=== PATIENT | female | born 1970 | race Caucasian/White ===

== ENCOUNTER 2019-11-11 01:32 | Outpatient (CLI) | payer OTHER, SELFPAY ==
[2019-11-12 13:59] LABS: SARS-CoV-2 RNA PCR Negative
== END 2019-11-11 01:33 | disposition home or self-care (01) ==
LOC: ANHCOVIDDT 01:33
PROVIDERS: PCP Family Medicine; Visit Provider Podiatrist Foot & Ankle Surgery
DX: Z01.812 Encounter for preprocedural laboratory examination (principal); Z11.59 Encounter for screening for other viral diseases
CPT/HCPCS: 87635; C9803; U0003

== ENCOUNTER 2019-11-13 03:14 | Day surgery (SDC) | payer OTHER, SELFPAY ==
[2019-11-10 09:07] VITALS: BMI 41.3
[2019-11-13] VITALS (9 sets, daily range): BP systolic 110–146; BP diastolic 50–98; PULSE 63–80; RESP 10–18; TEMP 36.6; O2SAT 93–100
--- NOTE | ~2019-11-13 | XR_ITS ---
EXAMINATION: XR surgery orthopedic DATE: 11/13/2019 12:00 INDICATION: Right foot bunionectomy TECHNIQUE: 5 fluoroscopic spot images of the right forefoot were obtained during procedure performed by Dr. Teague. Radiologist was not present for the imaging or procedure. The amount of fluoroscopy time used during this procedure was 2.0 minutes. COMPARISON: None. FINDINGS: Initial image demonstrates a forcep marking region of the medial side of the first tarsal metatarsal joint. There is hallux valgus. 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 Subsequent images demonstrates first tarsal metatarsal arthrodesis with internal fixation utilizing a couple dorsal plate and screws. Bunionectomy with resection of the medial side of the hea d of the first metatarsal. Realignment medial closing wedge osteotomy with staple fixation near the b ase of the first proximal phalanx. Shortening osteotomy at the neck of the second metatarsal which is fixed with a couple dorsal to plantar directed screws. Alignment appears near-anatomic on the post p rocedure images. Expected postoperative gas in some of the soft tissues. No acute fractures identifie d. IMPRESSION: 1. Fluoroscopy utilized during orthopedic procedure at several locations in the right forefoot as det jonah above. See procedure note for further detail. Reviewed, dictated and finalized at location A. IMPRESSION: 1. Fluoroscopy utilized during orthopedic procedure at several locations in the right forefoot as detailed above. See procedure note for further detail.
[2019-11-13] MEDS: LACTATED RINGERS 1,000 ML 30 ML IV CONT ×2 (06:44→10:36)
--- NOTE | 2019-11-13 06:44 | WPDANESEPPF ---
Anes - Initial Pre Proc Eval Procedure: Operation Date: 11/13/19 07:30 Proposed Procedures p Lapidus Bunionectomy Right Foot, - Osorio Teague JR, MD s Aditya Phalangeal Osteotomy Right Hallux, Giuliana Shortening Second Metatarsal Osteotomy Right Foot - Osorio Teague JR, MD Date/Time: 11/13/19 06:44 Surgeon: Osorio Teague JR, MD Pre Op Diagnosis: bunion right foot,metarsalgia sub 2nd mpj rt foot Patient Data Age: 48 Gender: F Height: 4 ft 11 in Weight: 92.2 kg Allergies Allergy/AdvReac Type Severity Reaction Status Date / Time No Known Allergies Allergy Unverified 11/13/19 06:17 Home Medications Medication Instructions Recorded Confirmed Type alprazolam 0.25 mg tablet 0.25 mg PO TID PRN #30 tablet 10/08/19 11/13/19 Rx citalopram 40 mg tablet 40 mg PO DAILY 10/08/19 11/13/19 History nebivolol 5 mg tablet 5 mg PO DAILY #90 tablet 11/05/19 11/13/19 Rx Patient hx anesthesia problems: none Family hx anesthesia problems: none PMFSH Surgical History Surgical History History of total abdominal hysterectomy 02.22.16 Family History Family History Mother Family history of thyroid disease Hypertension Father Diabetes mellitus Hypertension Grandparent Depression Hypertension Social History Social History Smoking packs per day: 0.5 Smoking cigarettes per day: 10.0 Years smoked: 10 Smoking pack-years: 5.00 Smoking status: Current every day smoker Tobacco type: cigarettes Additional smoking assessment comments: quit 10 years ago Alcohol intake: current Drinks per week: 4 Living arrangements: with family Gender identity (if verbalized by the patient): Female Spiritual care concerns: No Anes - Eval Final PreProcedure Day of Procedure 11/13/19 06:44 Patient weight: morbidly obese Heart: regular rate and rhythm Lungs: decreased breath sounds Airway: Mallampati scale class II Neurological: alert and oriented Last oral intake: >/= 8 hours ASA classification: III Emergent: no Anesthetic plan: proceed Anesthesia type and monitoring: general LMA and standard monitoring Informed Consent: The patient's anesthetic plan and its attendant risks and benefits were discussed with the patient/family/POA. Questions were solicited and answers provided to the satisfaction of the patient/family/POA.
--- NOTE | 2019-11-13 07:11 | WPDHPUPDATE1 ---
History and Physical Update Update Date/Time: 11/13/19 07:11 History and Physical has been reviewed, including an updated exam of the patient. There are NO changes in the patient's condition. Risks, benefits, and alternatives have been discussed and questions answered. Patient agrees to proceed with procedure.
[2019-11-13] MEDS: ceFAZolin 2 GM/D5W 50 ML 2 GM/50 ML BAG IVPB (07:28)
--- NOTE | 2019-11-13 08:31 | WPDANESPNB ---
Anes - Peripheral Nerve Block Date/Time: 11/13/19 08:31 I have discussed with the patient/family/POA the placement of a peripheral nerve block for post-operative pain management, including associated risks, benefits, complications, and side effects. Alternative methods of post-operative analgesia were detailed. Questions were solicited and answers provided to the satisfaction of the patient/family/POA. Time-Out: A pre-procedural Time-Out was completed immediately before starting the procedure and confirmed: Patient Identification, Site, Procedure, Patient Position and the Availability of Requisite Equipment. Clinical Indications: Acute post-operative pain management requested by the operative surgeon. Nerve Block Insertion Note Anes-nerve block: posterior fossa sciatic right and other (Saphenous right) Patient position: supine Skin prep: chlorhexidine Needle: 22 gauge, stimulating, insulated echogenic needle. Needle length: 80 mm Technique: nerve stimulation lost at (mA) (0.3) Technique comment: versed 2mg fent 100mcg Injectate: bupivacaine 0.5% with epi 5 mcg/ml (20/10ml) and dexamethasone (mg) (4) Observations: tolerated well Complications: none Procedure start time:: 714 Procedure end time:: 722
[2019-11-13] MEDS: KETOROLAC 30 MG/ML VIAL (*BKC) IV PUSH (10:20)
--- NOTE | 2019-11-13 10:43 | PM.OP ---
Procedure Note - Brief Procedure Note - Brief Date of procedure: 11/13/19 Pre-op diagnosis: bunion right foot,metarsalgia sub 2nd mpj rt foot Post-op diagnosis: same Procedure performed: Lapidus bunionectomy right foot Aditya phalangeal osteotomy right hallux Giuliana Shortening 2nd metatarsal osteotomy right foot Anesthesia: GLMA Surgeon: Osorio Teague JR, DPM Estimated blood loss (mL): 5 Complications: No immediate complications Condition: stable Disposition: same day
--- NOTE | 2019-11-13 20:22 | OP_ITS ---
DATE OF PROCEDURE: 11/13/2019 PREOPERATIVE DIAGNOSES: 1. Hallux abductovalgus deformity, right foot. 2. Metatarsalgia, sub-second metatarsophalangeal joint of the right foot. POSTOPERATIVE DIAGNOSES: 1. Hallux abductovalgus deformity, right foot. 2. Metatarsalgia, sub-second metatarsophalangeal joint of the right foot. PROCEDURE: 1. Lapidus bunionectomy of the right foot. 2. Aditya phalangeal osteotomy of the right hallux. 3. Giuliana shortening of 2nd metatarsal osteotomy of the right foot. PATHOLOGY: None. ANESTHESIA: General with a popliteal fossa block. HEMOSTASIS: Pneumatic thigh tourniquet at 300 mmHg. ESTIMATED BLOOD LOSS: Minimal. MATERIALS USED: One Treace Lapiplasty system utilizing 2 straight plates with Treace fully-threaded cortical screws, 1 Arnold Nitinol compression staple, 2 Dexter 2.0 mm partially-threaded cannulated screws, 3-0 Vicryl, 4-0 Vicryl, and 4-0 Monocryl. ESTIMATED BLOOD LOSS: Less to 5 cc. INJECTABLES: None. COMPLICATIONS: None. PROCEDURE IN DETAIL: Under mild sedation, the patient was brought into the operating room and placed on the operating table in the supine position. Pneumatic thigh tourniquet was placed about the patient's right thigh. Following general anesthesia and a previous popliteal fossa block, the foot was then scrubbed, prepped, and draped in the usual aseptic manner. An Esmarch bandage was then used to examine the patient's right foot. Pneumatic thigh tourniquet was then inflated. Surgery began in the following manner. Attention was directed to the dorsal aspect of the 1st metatarsocuneiform joint of the right foot where incision was made along the proximal aspect of the medial cuneiform and extending to the central shaft of the 1st metatarsal. The incision was continued deep down through the subcutaneous tissues using sharp and blunt dissection. All bleeders were ligated and cauterized as necessary. At this point, the periosteum and capsular incision were made just medial to the extensor hallucis longus tendon. Careful dissection was used to expose the base of the 1st metatarsal as well as the entire cuneiform specially plantar medially. At this point, a sagittal bone saw was placed within the 1st metatarsocuneiform joint in order to free up any ankylosis and also to fully up the plantar ligaments from the 1st metatarsal cuneiform joint area. Next, a small Steinmann pin was placed within the base of the 1st metatarsal in order to assess rotation in the frontal plane of the 1st metatarsal in order to make certain that complete reduction of the 1st metatarsal was possible. Next, a small 2 cm incision was made along the lateral aspect of the 1st metatarsophalangeal joint. The dissection was continued deep down to the subcutaneous tissues using sharp and blunt dissection. All bleeders were ligated and cauterized as necessary. At this point, the lateral capsule was released and also the fibular sesamoid was freed distally, laterally, and proximally along with the release of the adductor hallucis longus tendon. The wound site was then flushed with copious amounts of sterile saline and the incision to the lateral aspect of the 1st metatarsophalangeal joint was reapproximated with 4-0 Vicryl and 4-0 Monocryl in running subcuticular suture fashion technique. Next, the Treace positioner was placed along the lateral aspect of the central shaft of the 2nd metatarsal through a small stab incision and also along the medial most aspect of the 1st metatarsal and then carefully rotated in order to reduce the hallux valgus deformity. Excellent correction of the deformity was assessed. At this point, the Treace cutting guide was placed along the dorsal aspect of the 1st metatarsocuneiform joint under standard principles and techniq
== END 2019-11-13 12:55 | disposition home or self-care (01) ==
PROVIDERS: PCP Family Medicine; Visit Provider Podiatrist Foot & Ankle Surgery
PROC: (CPT 28299; principal; 2019-11-13 07:30)
PROC: (CPT 28750; 2019-11-13 07:30)
DX: M20.11 Hallux valgus (acquired), right foot (principal); M77.41 Metatarsalgia, right foot; F17.210 Nicotine dependence, cigarettes, uncomplicated; E66.01 Morbid (severe) obesity due to excess calories; Z68.41 Body mass index [BMI] 40.0-44.9, adult; G89.18 Other acute postprocedural pain
CPT/HCPCS: 28308; 28297; 28298; 64445; 64447; 87635; A9270; C1713; C9803; J0131; J0690; J1100; J1170; J1885; J2250; J2405; J2704; J3010; J7120; U0003

== ENCOUNTER 2020-02-12 08:09 | Outpatient (CLI) | payer OTHER, SELFPAY ==
--- NOTE | 2020-02-12 08:13 | ECG_ITS ---
Measurements Intervals [place] Rate: 61 P: 40 [place]: 149 QRS: 2 QRSD: 88 T: 2 QT: 424 QTc: 430 Interpretive Statements SINUS RHYTHM DELAYED PRECORDIAL R/S TRANSITION BORDERLINE ST-T WAVE ABNORMALITY- ANT/INF LEADS BASELINE ARTIFACT- I, II, III, AVR, AVL, AVF BORDERLINE ECG Electronically Signed On 02-12-2020 8:38:42 CDT by Reji Fuentes D.O.
== END 2020-02-12 08:10 | disposition home or self-care (01) ==
PROVIDERS: PCP Family Medicine; Visit Provider Podiatrist Foot & Ankle Surgery
DX: Z01.818 Encounter for other preprocedural examination (principal); I10 Essential (primary) hypertension; R94.31 Abnormal electrocardiogram [ECG] [EKG]
CPT/HCPCS: 93005

== ENCOUNTER 2020-02-17 03:28 | Outpatient (CLI) | payer OTHER, SELFPAY ==
[2020-02-17 19:05] LABS: SARS-CoV-2 RNA PCR Negative
== END 2020-02-17 03:29 | disposition home or self-care (01) ==
LOC: ANHCOVIDDT 03:28
PROVIDERS: PCP Family Medicine; Visit Provider Podiatrist Foot & Ankle Surgery
DX: Z01.812 Encounter for preprocedural laboratory examination (principal); Z20.828 Contact with and (suspected) exposure to other viral communicable diseases
CPT/HCPCS: 87635; C9803; U0003

== ENCOUNTER 2020-02-19 00:37 | Day surgery (SDC) | payer OTHER, SELFPAY ==
[2020-02-10 15:03] VITALS: BMI 39.4
[2020-02-19] VITALS (7 sets, daily range): BP systolic 127–151; BP diastolic 70–83; PULSE 65–107; RESP 14–20; TEMP 36.6–36.9; O2SAT 95–100
--- NOTE | ~2020-02-19 | XR_ITS ---
EXAMINATION: XR surgery orthopedic DATE: 02/19/2020 09:39 INDICATION: Left foot bunion correction TECHNIQUE: 2 fluoroscopic spot images of the left forefoot were obtained during procedure performed jaime Teague. Radiologist was not present for the imaging or procedure. The amount of fluoroscopy t josh used during this procedure was minutes. COMPARISON: None. FINDINGS: Osteotomy at the medial head of the first metatarsal consistent with bunionectomy with expected swell ing and gas in the overlying soft tissues. There are also distal age-indeterminate postoperative bo ges of first tarsal metatarsal arthrodesis with plate and screw fixation, osteotomy at the base of th e first proximal phalanx with staple fixation at the neck of the second metatarsal with a pair of fix ation screws. No fracture and the visualized bones. Mild osteoarthritis at the first metatarsophalang eal joint. Slight widening of the second metatarsophalangeal joint space likely related to the slight shortening of the metatarsal secondary to the osteotomy. IMPRESSION: 1. Fluoroscopy utilized during left foot bunionectomy with additional age-indeterminate postoperative changes detailed above. See procedure note for further detail. Reviewed, dictated and finalized at location A. IMPRESSION: 1. Fluoroscopy utilized during left foot bunionectomy with additional age-indet erminate postoperative changes detailed above. See procedure note for further d etail.
[2020-02-19] MEDS: LACTATED RINGERS 1,000 ML 30 ML IV CONT ×3 (06:32→10:30)
--- NOTE | 2020-02-19 06:50 | WPDANESEPPF ---
Anes - Initial Pre Proc Eval Procedure: Operation Date: 02/19/20 07:30 Proposed Procedures p Lapidus Bunionectomy Left Foot, Aditya Phalangeal Osteotomy Left Hallux, - Osorio Teague JR, MD s Giuliana Shortening Second Metatarsal Osteotomy Left Foot - Osorio Teague JR, MD Date/Time: 02/19/20 06:50 Surgeon: Osorio Teague JR, MD Pre Op Diagnosis: bunion left foot, metatarsalgia 2nd mpj left foot Patient Data Age: 49 Gender: F Height: 4 ft 11 in Weight: 88.45 kg Allergies Allergy/AdvReac Type Severity Reaction Status Date / Time No Known Allergies Allergy Unverified 02/10/20 15:04 Home Medications Medication Instructions Recorded Confirmed Type alprazolam 0.25 mg tablet 0.25 mg PO TID PRN #30 tablet 10/08/19 02/10/20 Rx nebivolol 5 mg tablet 5 mg PO DAILY #90 tablet 11/05/19 02/10/20 Rx citalopram 40 mg tablet 40 mg PO DAILY #90 tablet 11/26/19 02/10/20 Rx Patient hx anesthesia problems: none Family hx anesthesia problems: none PMFSH Surgical History Surgical History History of total abdominal hysterectomy 02.22.16 Family History Family History Mother Family history of thyroid disease Hypertension Father Diabetes mellitus Hypertension Grandparent Depression Hypertension Social History Social History Smoking packs per day: 0.5 Smoking cigarettes per day: 10.0 Years smoked: 5 Smoking pack-years: 2.50 Smoking status: Former smoker Tobacco type: cigarettes Additional smoking assessment comments: QUIT 10 YEARS AGO Alcohol intake: current Drinks per week: 4 Gender identity (if verbalized by the patient): Female Spiritual care concerns: No Anes - Eval Final PreProcedure Day of Procedure 02/19/20 06:50 Patient weight: obese Heart: regular rate and rhythm Lungs: clear to auscultation Airway: Mallampati scale class II Neurological: alert and oriented Last oral intake: >/= 8 hours ASA classification: III Emergent: no Anesthetic plan: proceed Anesthesia type and monitoring: general LMA and standard monitoring Informed Consent: The patient's anesthetic plan and its attendant risks and benefits were discussed with the patient/family/POA. Questions were solicited and answers provided to the satisfaction of the patient/family/POA.
--- NOTE | 2020-02-19 07:10 | WPDHPUPDATE1 ---
History and Physical Update Update Date/Time: 02/19/20 07:10 History and Physical has been reviewed, including an updated exam of the patient. There are NO changes in the patient's condition. Risks, benefits, and alternatives have been discussed and questions answered. Patient agrees to proceed with procedure.
--- NOTE | 2020-02-19 07:19 | WPDANESPNB ---
Anes - Peripheral Nerve Block Date/Time: 02/19/20 07:19 I have discussed with the patient/family/POA the placement of a peripheral nerve block for post-operative pain management, including associated risks, benefits, complications, and side effects. Alternative methods of post-operative analgesia were detailed. Questions were solicited and answers provided to the satisfaction of the patient/family/POA. Time-Out: A pre-procedural Time-Out was completed immediately before starting the procedure and confirmed: Patient Identification, Site, Procedure, Patient Position and the Availability of Requisite Equipment. Clinical Indications: Acute post-operative pain management requested by the operative surgeon. Nerve Block Insertion Note Anes-nerve block: posterior fossa sciatic left and other (saphenous) Patient position: supine Needle: 22 gauge, stimulating, insulated echogenic needle. Needle length: 80 mm Technique: nerve stimulation lost at (mA) (0.3) Injectate: bupivacaine 0.5% with epi 5 mcg/ml (23cc sciatic and 7cc saphenous) Observations: tolerated well Complications: none Procedure start time:: 709 Procedure end time:: 714
[2020-02-19] MEDS: ceFAZolin 2 GM/D5W 50 ML 2 GM/50 ML BAG IVPB (07:29)
--- NOTE | 2020-02-19 09:39 | SUR.OPER ---
EBL:10cc
--- NOTE | 2020-02-19 10:12 | PM.OP ---
Procedure Note - Brief Procedure Note - Brief Date of procedure: 02/19/20 Pre-op diagnosis: bunion left foot, metatarsalgia 2nd mpj left foot Post-op diagnosis: same Procedure performed: 1. Lapidus bunionectomy left foot 2. Aditya phalangeal osteotomy left hallux 3. Giuliana shortening 2nd metatarsal osteotomy left foot Anesthesia: GLMA Surgeon: Osorio Teague JR, DPM Estimated blood loss (mL): 1 Complications: No immediate complications Condition: stable Disposition: same day
[2020-02-19] MEDS: fentaNYL CITRATE INJ (*CRX) 100 MCG/2 ML VIAL 25 MCG IV PUSH ×10 (10:24→10:46)
--- NOTE | 2020-02-19 20:39 | OP_ITS ---
DATE OF PROCEDURE: 02/19/2020 PREOPERATIVE DIAGNOSES: 1. Severe bunion deformity, left foot. 2. Metatarsalgia, sub-2nd metatarsophalangeal joint, left foot. POSTOPERATIVE DIAGNOSES: 1. Severe bunion deformity, left foot. 2. Metatarsalgia, sub-2nd metatarsophalangeal joint, left foot. PROCEDURE: 1. Lapidus bunionectomy of the left foot. 2. Aditya phalangeal osteotomy, the left hallux. 3. Giuliana shortening 2nd metatarsal osteotomy of the left foot. PATHOLOGY: None. ANESTHESIA: General with the POP block. HEMOSTASIS: Pneumatic ankle tourniquet at 250 mmHg. ESTIMATED BLOOD LOSS: Minimal. MATERIALS USED: 1. One Arnold 8 mm Nitinol compression staple, 2 Hayden 2.0 mm partially threaded cannulated screws. 2. One Treace Lapiplasty system with two 4-hole plates and 4 fully-threaded cortical locking screws, 3-0 PDS, 3-0 Vicryl, 4-0 Vicryl, and 4-0 Monocryl. PROCEDURE IN DETAIL: Under mild sedation, the patient was brought to the operating room, placed on the operating table in the supine position. A pneumatic ankle tourniquet was placed about the patient's right ankle. Following general anesthesia and a previous popliteal fossa block, the left foot was then scrubbed, prepped, and draped in the usual aseptic manner. An Esmarch bandage was then used to examine the patient's left foot and pneumatic ankle tourniquet was then inflated. Surgery began in the following manner. Attention was directed to the dorsal aspect of the 1st metatarsocuneiform to the left foot where fluoroscopy was used to identify the joint. A 3 cm incision was made overlying the dorsal aspect of the 1st metatarsocuneiform joint of the left foot just medial to the extensor hallucis longus tendon. The incision was then continued deep down through the subcutaneous tissues using sharp and blunt dissections. All bleeders were ligated and cauterized as necessary. At this point, the extensor tendon was identified and reflected laterally. Next, the periosteum and capsular incision was made at the full length of the skin incision exposing the medial cuneiform as well as the base of the 1st metatarsal. Next, a sagittal bone saw was introduced from dorsal to plantar across the 1st metatarsocuneiform joint in order to free up any ankylosed portions of the joint and also to release any adhesions. A fulcrum was placed along the lateral aspect of the base of the 1st metatarsal from the Needle HR Lapiplasty system. At this point, a small 2 cm incision was made along the lateral aspect of the 1st metatarsophalangeal joint of the left foot and a lateral release consisting of a lateral capsule incision as well as fraying of the adductor hallucis tendon with the tenotomy as well as releasing the distal aspect and lateral aspect and proximal aspect of the fibular sesamoid. After this, a lateral release was performed. The hallux was noted to be slightly reduced as far as the track-bound hallux. The small joystick was placed within the medial aspect of the 1st metatarsal of the left foot and a separate stab incision was made along the base of the 2nd metatarsal. Utilizing the Needle HR medical positioner, it was placed along the lateral aspect of the base of the 2nd metatarsal as well as along the medial aspect of the base of the 1st metatarsal. This device was then closed down in order to reduce the 1st intermetatarsal angle as well as the hallux abductus angle. The K-wire was used to hold the position of the 1st and 2nd metatarsals. The joint seeker was placed within the 1st metatarsocuneiform joint as well as the cutting guide. After careful position of the cutting guide atop the 1st metatarsocuneiform joint, there was appropriately secured utilizing small pins. Next, the base of the 1st metatarsal as well as
== END 2020-02-19 11:45 | disposition home or self-care (01) ==
PROVIDERS: PCP Family Medicine; Visit Provider Podiatrist Foot & Ankle Surgery
PROC: (CPT 28299; principal; 2020-02-19 07:30)
PROC: (CPT 28750; 2020-02-19 07:30)
DX: M21.612 Bunion of left foot (principal); M77.42 Metatarsalgia, left foot; G89.18 Other acute postprocedural pain; Z87.891 Personal history of nicotine dependence; E66.9 Obesity, unspecified; Z68.39 Body mass index [BMI] 39.0-39.9, adult
CPT/HCPCS: 28297; 28308; 64450; 64445; C1713; J0690; J1100; J2250; J2405; J2704; J3010; J7120

== ENCOUNTER 2020-10-19 08:22 | Emergency (ER) | payer OTHER, SELFPAY ==
[2020-10-19 08:44] VITALS: BP 147/78; PULSE 85; RESP 21; O2SAT 97
[2020-10-19 09:30] LABS: Basophils Absolute Auto 0.1 K/mm3 (0.0-0.1); Basophils Percent Auto 0.6 % (0.2-1.2); Hematocrit 42.4 % (37.0-47.0); Hemoglobin 13.9 g/dL (12.0-15.0); Immature Granulocyte Absolute 0.03 K/mm3 (0.00-0.031); Immature Granulocyte Percent A 0.4 % (0-0.5); Lymphocytes Percent Auto 14.7 % (18.3-44.2); Mean Corpuscular HGB Conc 32.8 g/dl (32-36); Mean Corpuscular Hemoglobin 30.1 pg (26-34); Mean Corpuscular Volume 91.8 fl (80-100); Mean Platelet Volume 8.5 fl (7.4-10.4); Monocytes Absolute Auto 0.6 K/mm3 (0.1-0.6); Monocytes Percent Auto 7.4 % (2.6-8.5); Neutrophils Absolute Auto 6.3 K/mm3 (1.3-6.7); Neutrophils Percent Auto 76.9 % (45.5-73.1); Platelet Count Result 289 k/mm3 (150-375); Red Blood Count 4.62 M/mm3 (4.2-5.4); Red Cell Distribution Width 13.5 % (11.5-14.5); White Blood Count 8.2 K/mm3 (4.5-10.0)
[2020-10-19 09:37] LABS: Alanine Aminotransferase 41 U/L (4-35); Albumin Level 4.7 g/dL (3.5-5.1); Alkaline Phosphatase 86 U/L (38-126); Anion Gap 14 mmol/L (8-16); Aspartate Amino Transferase 49 U/L (14-36); Bilirubin,Total 0.7 mg/dL (0.2-1.3); Blood Urea Nitrogen 10 mg/dL (7-17); Carbon Dioxide 23 mmol/L (22-30); Chloride 103 mmol/L (98-107); Estimated Glomerular Filt Rate > 60; Glucose 106 mg/dL (65-105); Lipase 20 U/L (23-300); Potassium 4.1 mmol/L (3.4-5.0); Sodium 140 mmol/L (137-145)
[2020-10-19 09:55] LABS: Add Urine Microscopic? YES; Appearance Urine Cloudy (Clear); Bacteria Urine Trace /hpf; Bilirubin Urine Negative (Negative); Blood Urine 2+ (Negative); Color Urine Yellow (Yellow); Glucose Urine UA Negative (Negative); Ketones Urine 1+ mg/dL (Negative); Leukocyte Esterase Ur Trace LEU/UL (Negative); Mucus Urine Few /lpf; Nitrate Urine Negative (Negative); Protein Urine Negative (Negative); RBC Urine 0-2 /hpf (0-2); Squamous Epithelial Cell Urine Many /hpf (Few); Urobilinogen Urine Negative mg/dL (<2.0)
[2020-10-19 10:05] LABS: Amphetamine Screen Urine Negative (Negative); Barbiturate Screen Urine Negative (Negative); Benzodiazepines Screen Urine Negative (Negative); Cannabinoid Screen Urine Positive (Negative); Cocaine Screen Urine Negative (Negative); Methadone Screen Urine Negative (Negative); Opiate Screen Urine Negative (Negative); Phencyclidine Screen Urine Negative (Negative)
--- NOTE | 2020-10-19 10:20 | ED.GENADULT ---
HPI - General Adult General Chief complaint: Alcohol Stated complaint: wants checked out after drinking for 3 days Time Seen by Provider: 10/19/20 09:02 Source: patient, family and RN notes reviewed Mode of arrival: ambulatory Limitations: no limitations History of Present Illness HPI narrative: Patient is a 49-year-old female who presents with her for evaluation after 3 days of binge drinking patient notes that she was with a friend for the last 3 days drinking patient on arrival to emergency department denies any pain vomiting diarrhea patient's was concerned given that she had disappeared for 3 days with a friend patient herself denies any symptoms or other concerns Related Data Allergies Allergy/AdvReac Type Severity Reaction Status Date / Time No Known Allergies Allergy Unverified 10/19/20 08:50 Review of Systems Review of Systems: All systems reviewed & are unremarkable except as noted in HPI and below PMFSH Surgical History Surgical History History of total abdominal hysterectomy 10.16 Family History Family History Mother Family history of thyroid disease Hypertension Father Diabetes mellitus Hypertension Grandparent Depression Hypertension Social History Social History Smoking packs per day: 0.5 Smoking cigarettes per day: 10.0 Years smoked: 5 Smoking pack-years: 2.50 Smoking status: Former smoker Tobacco type: cigarettes Additional smoking assessment comments: QUIT 10 YEARS AGO Alcohol intake: current Drinks per week: 4 Gender identity (if verbalized by the patient): Female Spiritual care concerns: No Exam Narrative: Exam Narrative: GENERAL: Well-appearing, obese, and in no acute distress. HEAD: Normocephalic, atraumatic. EYES: PERRLA and EOMI. ENT: Nares clear, no rhinorrhea or epistaxis. Mucous membranes moist. CHEST: Clear to auscultation. No respiratory distress. No wheezes rales or rhonchi HEART: Regular rate and rhythm. No murmur heard. Normal peripheral pulses. ABDOMEN: Soft, nontender, nondistended EXTREMITIES: Normal range of motion. No edema. SKIN: Warm, dry, no rash. NEURO: No focal deficits. Alert and oriented x3. Cranial nerves II through XII grossly intact PSYCH: Normal mood and affect. Course Course Emergency Course: Patient in the room in no distress aware of case findings treatment plan diagnosis agreeing to follow-up as instructed felt appropriate for outpatient reevaluation feels fine at this time no complaints ABCs and vital signs intact and stable Vital Signs Vital signs: Vital Signs Pulse Rate 85 10/19/20 08:44 Respiratory Rate 21 H 10/19/20 08:44 Blood Pressure 147/78 H 10/19/20 08:44 Pulse Oximetry 97 10/19/20 08:44 Pulse Rate 85 10/19/20 08:44 Respiratory Rate 21 H 10/19/20 08:44 Blood Pressure 147/78 H 10/19/20 08:44 Pulse Oximetry 97 10/19/20 08:44 Medical Decision Making MDM Narrative Medical decision making narrative: Patient in the room at this time in no distress presented after 3 days of binge drinking does not have a history of chronic alcoholism has been concerned given that she disappeared for 3 days patient in no distress resting comfortably as noted felt appropriate for outpatient reevaluation Vital Signs Vital Signs: Vital Signs Pulse Rate 85 10/19/20 08:44 Respiratory Rate 21 H 10/19/20 08:44 Blood Pressure 147/78 H 10/19/20 08:44 Pulse Oximetry 97 10/19/20 08:44 Pulse Rate 85 10/19/20 08:44 Respiratory Rate 21 H 10/19/20 08:44 Blood Pressure 147/78 H 10/19/20 08:44 Pulse Oximetry 97 10/19/20 08:44 Lab Data Result diagrams: 10/19/20 09:20 10/19/20 09:20 Labs: Lab Results 10/19/20 10/19/20 10/19/20 Range/Units 09:20 09:20 09:40 W
[2020-10-19 10:51] VITALS: BP 139/90; PULSE 81; RESP 16; O2SAT 97
== END 2020-10-19 10:53 | disposition home or self-care (01) ==
PROVIDERS: Emergency Medicine Emergency Medical Services; Emergency Provider Emergency Medicine; PCP Family Medicine
DX: F10.129 Alcohol abuse with intoxication, unspecified (principal); F12.929 Cannabis use, unspecified with intoxication, unspecified; Z87.891 Personal history of nicotine dependence; Y90.9 Presence of alcohol in blood, level not specified
CPT/HCPCS: 36415; 80053; 80307; 81001; 83690; 85025; 99283

== ENCOUNTER 2021-12-07 01:05 | Day surgery (SDC) | payer OTHER, SELFPAY ==
[2021-11-21 14:27] VITALS: BMI 37.3
--- NOTE | 2021-12-06 14:48 | PM.HPGS ---
History of Present Illness History of Present Illness Consent: Risks, benefits, and alternatives have been discussed and questions answered. Patient agrees to proceed with procedure. Chief complaint: neoplasm screening Narrative: Debra Pulido is a 50 year old female Referred for colon cancer screening. Review of Systems Review of Systems: All systems reviewed & are unremarkable except as noted in HPI and below PMFSH Surgical History Surgical History History of total abdominal hysterectomy 02.22.16 Family History Family History Mother Family history of thyroid disease Hypertension Father Diabetes mellitus Hypertension Grandparent Depression Hypertension Social History Social History Smoking packs per day: 0.5 Smoking cigarettes per day: 10.0 Years smoked: 5 Smoking pack-years: 2.50 Smoking status: Former smoker Tobacco type: cigarettes Additional smoking assessment comments: QUIT 10 YEARS AGO Alcohol intake: former Gender identity (if verbalized by the patient): Female Spiritual care concerns: No Meds Home Medications and Allergies Home Medications Medication Instructions Recorded Confirmed Type trazodone 50 mg tablet See Rx Instructions PO QHS #30 tabs 12/15/20 11/21/21 Rx naltrexone 50 mg tablet 50 mg PO DAILY #90 tabs 08/25/21 11/21/21 Rx bupropion HCl 150 mg 24 hr tablet, 150 mg PO QAM 11/21/21 11/21/21 History extended release (Wellbutrin XL) citalopram 40 mg tablet (Celexa) See Rx Instructions .Route .COMPLEX 11/21/21 11/21/21 History nebivolol 5 mg tablet (Bystolic) See Rx Instructions .Route .COMPLEX 11/21/21 11/21/21 History Allergies Allergy/AdvReac Type Severity Reaction Status Date / Time No Known Allergies Allergy Verified 11/21/21 14:25 Exam Resp: Auscultation: clear to auscultation bilaterally Cardio: Rate: regular rate Rhythm: regular rhythm GI: GI Palp: Yes Soft to palpation and No Tenderness to palpation present (GI) Assessment and Plan Assessment and plan (1) Colon cancer screening: Code(s): Z12.11 - Encounter for screening for malignant neoplasm of colon Status: Acute Assessment and Plan: Colonoscopy with possible biopsy or polypectomy or cautery or injection of substances.
[2021-12-07 07:51] VITALS: BMI 38.5
[2021-12-07 07:53] VITALS: BP 135/78; PULSE 61; RESP 16; TEMP 36.9; O2SAT 98
[2021-12-07] MEDS: LACTATED RINGERS 1,000 ML 150 ML IV CONT (07:59)
--- NOTE | 2021-12-07 08:28 | WPDANESEPPF ---
Anes - Initial Pre Proc Eval Procedure: Operation Date: 12/07/21 09:00 Proposed Procedures p Screening Colonoscopy - James Painter MD Date/Time: 12/07/21 08:28 Surgeon: James Painter MD Pre Op Diagnosis: neoplasm screening Patient Data Age: 50 Gender: F Height: 1.5 m Weight: 86.5 kg Last Vital Signs Temp 98.5 F 12/07/21 07:53 Pulse 61 12/07/21 07:53 Resp 16 12/07/21 07:53 BP 135/78 12/07/21 07:53 Pulse Ox 98 12/07/21 07:53 Allergies Allergy/AdvReac Type Severity Reaction Status Date / Time No Known Allergies Allergy Verified 11/21/21 14:25 Home Medications Medication Instructions Recorded Confirmed Type trazodone 50 mg tablet See Rx Instructions PO QHS #30 tabs 12/15/20 11/21/21 Rx naltrexone 50 mg tablet 50 mg PO DAILY #90 tabs 08/25/21 11/21/21 Rx bupropion HCl 150 mg 24 hr tablet, 150 mg PO QAM 11/21/21 11/21/21 History extended release (Wellbutrin XL) citalopram 40 mg tablet (Celexa) See Rx Instructions .Route .COMPLEX 11/21/21 11/21/21 History nebivolol 5 mg tablet (Bystolic) See Rx Instructions .Route .COMPLEX 11/21/21 11/21/21 History Patient hx anesthesia problems: none Family hx anesthesia problems: none Results Review: All pre-operative results and documents have been reviewed as part of the pre-operative evaluation. [facility] Surgical History Surgical History History of total abdominal hysterectomy 02.22.16 Family History Family History Mother Family history of thyroid disease Hypertension Father Diabetes mellitus Hypertension Grandparent Depression Hypertension Social History Social History (Updated 10/11/21 @ 14:44 by Roxanne Monreal CMA) Smoking packs per day: 0.5 Smoking cigarettes per day: 10.0 Years smoked: 5 Smoking pack-years: 2.50 Smoking status: Former smoker Tobacco type: cigarettes Additional smoking assessment comments: QUIT 10 YEARS AGO Alcohol intake: former Gender identity (if verbalized by the patient): Female Spiritual care concerns: No Anes - Eval Final PreProcedure Day of Procedure 12/07/21 08:28 Patient weight: obese Heart: regular rate and rhythm Lungs: clear to auscultation Airway: Mallampati scale class II Neurological: alert and oriented Last oral intake: >/= 8 hours ASA classification: II Emergent: no Anesthetic plan: proceed Anesthesia type and monitoring: general GIVS and standard monitoring Results Review: All pre-operative results and documents have been reviewed as part of the pre-operative evaluation. Informed Consent: The patient's anesthetic plan and its attendant risks and benefits were discussed with the patient/family/POA. Questions were solicited and answers provided to the satisfaction of the patient/family/POA.
[2021-12-07] MEDS: SIMETHICONE ORAL SUSPENSION 20 MG/0.3 ML 30 ML BOTTLE 0.6 ML IRRIGATION (09:07)
[2021-12-07 09:17] VITALS: BP 118/70; PULSE 60; RESP 21; O2SAT 98
[2021-12-07 09:28] VITALS: BP 123/74; PULSE 57; RESP 18; O2SAT 100
[2021-12-07 09:38] VITALS: BP 115/68; PULSE 58; RESP 21; O2SAT 100
== END 2021-12-07 09:39 | disposition home or self-care (01) ==
PROVIDERS: PCP Family Medicine; Visit Provider Internal Medicine Gastroenterology
PROC: 0DJD8ZZ Inspection of Lower Intestinal Tract, Via Natural or Artificial Opening Endoscopic (ICD-10-PCS; CPT 45378; principal; 2021-12-07 09:00)
DX: Z12.11 Encounter for screening for malignant neoplasm of colon (principal); Z87.891 Personal history of nicotine dependence; E66.9 Obesity, unspecified; Z68.38 Body mass index [BMI] 38.0-38.9, adult
CPT/HCPCS: 45378; J2704; J7120

== ENCOUNTER 2022-01-23 08:59 | Outpatient (CLI) | payer OTHER, SELFPAY ==
--- NOTE | ~2022-01-23 | MM_ITS ---
EXAMINATION: MM screening piter BI w [facility] HISTORY: Screening mammogram TECHNIQUE: Craniocaudal and mediolateral oblique 3-D tomosynthesis images were obtained and synthetic 2-D images were generated. CAD analysis was submitted and interpreted. COMPARISON: No prior mammogram is available for comparison at this institution. BREAST PARENCHYMAL COMPOSITION: There are scattered areas of fibroglandular density. FINDINGS: There is no evidence of suspicious mass, calcification, or architectural distortion to sugg est malignancy in either breast. There has been no suspicious interval change. IMPRESSION: 1. No mammographic evidence of malignancy. 2. Recommend routine screening mammography in one year. BI-RADS Category 1: Negative Reviewed, dictated and finalized at location A.
== END 2022-01-23 09:00 | disposition home or self-care (01) ==
PROVIDERS: PCP Family Medicine; Visit Provider Family Medicine
DX: Z12.31 Encounter for screening mammogram for malignant neoplasm of breast (principal)
CPT/HCPCS: 77063; 77067